=== PATIENT | male | born 1940 | race Caucasian/White ===

== ENCOUNTER 2016-08-04 10:05 | Inpatient (IN) ==
[2016-08-04] MEDS ORDERED: Lidocaine -MPF 2% 2 ML VIAL ONE (10:13)
[2016-08-04] MEDS ORDERED: *HR* FentaNYL (PF) 100 MCG/2 ML VIAL ONE ×4 (10:13→17:50)
[2016-08-04] MEDS ORDERED: *HR* Propofol 200 MG/20 ML VIAL IVP ONE (10:13)
[2016-08-04] MEDS ORDERED: *HR* Rocuronium Bromide 50 MG/5 ML VIAL ONE (10:13)
[2016-08-04] MEDS ORDERED: Lidocaine 1% 20 ML MDV ID ONE (10:30)
[2016-08-04] MEDS ORDERED: CeFAZolin Pre 2,000 MG/100 ML 2,000 MG/100 ML BAG IVPB ONE (10:30)
[2016-08-04] MEDS ORDERED: Albuterol 2.5 MG/3 ML NEBULIZER IH ONE (10:31)
[2016-08-04] MEDS ORDERED: Ringers Solution, Lactated 1,000 ML IVC SCH ×4 (10:45→19:53)
--- NOTE | 2016-08-04 11:11 | Anesthesia Evaluation PreOp ---
Date of Encounter: 08/04/16 Time of Encounter: 11:00 - Past History Planned Operation: Angiogram, Iliac Stent Cardiac History: HTN, Hyperlipidemia, Other (AAA s/p endovascular repair with stent) Pulmonary History: Smoker, COPD SOCIAL GROUP WORKER History: Denies Any Significant HX Other Medical History: Denies Any Significant HX Anesthesia History: No Prior Anesthetic Complications Alcohol Use: none Drug use: none Medications and Allergies Amlodipine [Norvasc] 10 mg PO DAILY 06/26/16 [History] Aspirin [Lo-Dose Aspirin EC] 81 mg PO DAILY 06/26/16 [History] Simvastatin [Zocor] 20 mg PO DAILY 06/26/16 [History] Allergies No Known Allergies Allergy (Verified 06/26/16 06:43) - Meds/Allergy Pre-op Review Medications Reviewed: Yes Allergies Reviewed: Yes Beta Blockers on Current Med List: No Anesthesia Results - Labs Laboratory Tests 07/31/16 07/31/16 07/31/16 11:11 11:11 11:11 Hgb 15.5 Hct 47.4 Plt Count 256 PT 12.0 INR 1.1 APTT 28.3 Sodium 141 Potassium 4.1 BUN 16 Creatinine 0.97 - Imaging EKG: report reviewed (SR Rt BBB) Anesthesia Exam O2 Sat Height 1.73 m Height 1.73 m Height 1.73 m Weight 73.482 kg Weight 73.482 kg Weight 73.482 kg O2 Sat by Pulse Oximetry 95 Vital Signs Temp Pulse Resp BP Pulse Ox 98.2 F 101 18 144/89 95 08/04/16 10:36 08/04/16 10:36 08/04/16 10:36 08/04/16 10:36 08/04/16 10:36 Height: 5'8 Weight: 162 lbs NPO (# of Hours): MN Pain Scale: 0 - HEENT Pupil (Motor): Pupils equal, EOMI Mallampati: III Teeth: Edentulous Oral Opening: Less than or equal to 3 - SOCIAL GROUP WORKER LOC: Oriented SOCIAL GROUP WORKER Motor: Normal RUE, Normal LUE, Normal RLE, Normal LLE, Normal Face SOCIAL GROUP WORKER Sensory: Normal: RUE, LUE, RLE, LLE, Face - Cardiac Rhythm: Regular Murmur: None JVD: No Carotid Bruit: No - Pulmonary Breath Sounds: bilateral Clear Respiratory Effort: Symmetrical Anesthesia Assess/Plan ASA Score: 3 (HTN AAA Tobacco PVD) Modified Anju Scale for Level of Consciousness: Cooperative, oriented, and tranquil Anesthetic Plan: General Monitoring Plan: Standard Monitors Recovery Plan: PACU (Discussed GA, agrees to proceed)
--- NOTE | 2016-08-04 12:59 | History & Physical Report ---
Date of Encounter: 08/04/16 Time of Encounter: 11:30 24 Hour HP Update - Instructions Instructions: If the History and Physical is less than 30 days old and was completed prior to A.M. admission and or procedure and has NOT been updated on calendar day of procedure please complete this update prior to performing procedure. - Update Patient reports changes in Medical Condition: No Changes in assessment/condition: No Changes in Medication: No Preop tests/diagnostics Reviewed: Yes Surgery Remains Indicated: Yes Consent for Planned Operative Procedure(s) Verified: Yes - Pre-Operative Checklist Preoperative Checklist Indicated: Yes Prophylactic Antibiotic Ordered: Yes Home Medications Include Beta Filiberto: No Beta Filiberto Taken Today (Day of Surgery): No Beta Filiberto Taken Yesterday (Day Prior to Surgery): No Is VTE Prophylaxis Indicated?: Yes
[2016-08-04] MEDS ORDERED: Dexamethasone 4 MG/ML VIAL ONE ×2 (14:01→15:34)
[2016-08-04] MEDS ORDERED: *HR* Labetalol 100 MG/20 ML MDV IVP PRN (14:21)
[2016-08-04] MEDS ORDERED: Ondansetron 4 MG/2 ML VIAL IVP ONE (14:21)
[2016-08-04] MEDS ORDERED: *HR* Meperidine 25 MG/ML SYRINGE IVP PRN (14:21)
[2016-08-04] MEDS ORDERED: *HR* HYDROmorphone (PF) 1 MG/ML SYRINGE IVP PRN (14:21)
[2016-08-04] MEDS ORDERED: *HR* Heparin 5,000 UNIT/ML VIAL ONE ×2 (14:44→15:44)
[2016-08-04] MEDS ORDERED: *HR* Phenylephrine 10 MG/ML VIAL ONE (14:48)
[2016-08-04] MEDS ORDERED: Ondansetron 4 MG/2 ML VIAL ONE (15:34)
[2016-08-04] MEDS ORDERED: Heparin 1,000 UNITS/500 mL NS 2,000 ML ONE (17:15)
[2016-08-04] MEDS ORDERED: Heparin 1,000 UNITS/500 mL NS 500 ML ONE (17:25)
--- NOTE | 2016-08-04 19:42 | Operative Note ---
Date of procedure: 08/04/16 Pre-op diagnosis: Expanding residual abdominal aortic aneurysm following EVAR Post-op diagnosis: other (Marked tortuosity of left iliac system) Procedure: Extension of endovascular stent graft repair via open femoral exposure on left. Catheter and sheath placement into aorta -bilateral -nonselective Extension prosthesis initial vessel(left common iliac) Radiologic supervision and interpretation for extension prosthesis Balloon-expandable stent angioplasty of left proximal external iliac artery with 8 x 37 express LD stent Complications: none Anesthesia: GETA Surgeon: Luis Enrique Abrams Estimated blood loss (cc): 750 Specimen: none Condition: stable Disposition: PACU Procedure in Detail: History Richard Barros is a 76-year-old white male who is status post an endovascular repair of an abdominal aortic aneurysm in November 2013. In the postoperative period he has undergone a series of scheduled outpatient follow-up surveillance CT scans. These serial CT scans have shown increasing size of the residual abdominal aortic aneurysm sac up to 6.9 cm. Multiple tests were performed and no defined endovascular leak has been able to be identified. The CT scans grams were submitted for expert review. They also concurred with an finding that no endovascular leak could be identified. Recommendation was then made to place an extension piece on the left side and the patient now comes to the operating room for this procedure. Procedure After informed consent was obtained the patient was taken to the operating room. General endotracheal anesthesia was established. The abdomen and groins and upper thighs were sterilely prepped and draped. A timeout protocol was observed during the left groin was then opened using the previous incision from the original operation in 2013. Dissection was carried down to the region of the inguinal ligament where the common femoral artery was identified. It was then controlled proximally and distally. An 18-gauge needle was then used and a wire was inserted through the needle into the left iliac system. This was followed by a 6 Cymro sheath and dilator. The wire and dilator did not advance smoothly. Therefore the dilator was removed and a iliac Angiogram was obtained via the left groin sheath. This showed a marked tortuosity of the left external iliac artery. An initial bolus of 5000 units of heparin was given at this time and repeat 1000 unit boluses were given on a one hour interval. This then led to a very long and tedious trial of attempting to pass a wire and catheter through this area and into the left limb of the aorto biiliac endovascular stent graft. This was an extremely tedious procedure and despite efforts this could not be performed. Therefore the right groin was punctured with a 18-gauge needle in a retrograde fashion. A guidewire was inserted and this was followed by a 6 Cymro sheath and dilator. Under fluoroscopic control the wire was advanced to the suprarenal aorta area. A Sos Omni catheter was selected and then the wire was passed from the main body which had been placed on the left side down into the left iliac limb. The wire was then advanced through the end of the endovascular stent graft and into the common femoral artery. The sheaths had been placed in the left common femoral artery was removed and the wire was identified. This wire was then pulled through from the right side over the graft into the left thigh region. With this exposed the wire was fed back retrograde over a 6 Cymro sheath. This was then advanced into the left iliac system. Then a 65 cm long angle-tipped glide catheter was advanced over the wire retrograde and the catheter was then placed into the suprarenal aorta. The wire was retracted from the right side and an Amplatz wire was inserted through the left groin glide catheter. With this done in oblique projection was then made of the iliac artery. The iliac bifurcation was identified and there was an area of dissection related to the catheter and wire manipulation. This was in the external iliac artery and the stent graft was secure. Therefore a Medtronic Endurant II stent graft system limb was selected that was a 16 x 20 x 82 mm long. This was a sanderson bottom configuration which was thought to best adapt to the size of the distal common iliac artery. This device was then deployed over the Amplatz wire under fluoroscopic guidance. This was then followed by a Coda balloon which was placed inside the stent graft and carefully inflated so that the stent graft was completely distended and had good wall apposition. No endovascular leaks were identified on a completion angiogram. There was a small area of extravasation at the proximal and lateral aspect of the left external iliac artery and as mentioned before there was an area as well of dissection which was retrograde event. This did not cause a hemodynamically significant flow obstruction but due to the small extravasation it was opted to perform a stent angioplasty of this area to close this area and also to help straighten the vessel. An 8 x 37 mm express LD balloon expandable stent was selected. This was placed in the proximal aspect of the left external iliac artery. This was inflated and held in position for 1 minute. The balloon was then deflated and removed. A final completion Angiogram was performed. This demonstrated a widely patent endovascular stent graft addition. The iliac artery bifurcation was preserved area the extravasation was now resolved. The area of the dissection was well approximated with this new stent. With this accomplished the wire and left femoral sheath were removed. The left femoral artery was then closed using a 6-0 Prolene suture. After appropriate backbleeding and flushing the left limb was opened. The patient demonstrated excellent pulses and Doppler signals through the left femoral system and femoral bifurcation. There was no hemodynamic distress with opening the left limb. As the patient had received repeated doses of heparin and was still therapeutically anticoagulated the right femoral sheath could not be removed at this time. Therefore this sheath was flushed again with heparinized saline and secured in its position. The sheath will be removed according to the standard protocol based on ACT monitoring. The patient was then extubated in the operating room. He was taken to the recovery room in stable condition. The sponge count and needle counts were correct.
--- NOTE | 2016-08-04 19:44 | Anesthesia Evaluation Post Op ---
Date of Encounter: 08/04/16 Time of Encounter: 19:43 - Vital Signs Vital Signs: Vital Signs/O2 Sat/Glucose, Most Current Temp Pulse Resp BP Pulse Ox 08/04/16 19:39 98.3 F 78 16 146/84 95 08/04/16 19:25 80 16 139/85 95 08/04/16 19:15 86 16 137/83 93 L 08/04/16 19:05 98.3 F 97 16 145/84 95 - Lungs Lungs: Clear Ascult./Percussion - Airway Airway: Non-obstructed - Cardiovascular Regular Rate - Mental Status Mental Status: Alert & Oriented, Answers Appropriately - Pain Pain Scale: 0 - Nausea Vomiting Nausea Vomiting: Not Present - Hydration Hydration: Tolerates oral liquids - Discharge PostOp Status: Discharge Patient to home
[2016-08-04] MEDS ORDERED: Naloxone 0.4 MG/ML INJ IVP PRN (19:53)
[2016-08-04] MEDS ORDERED: Ondansetron 4 MG/2 ML VIAL IVP PRN (19:53)
[2016-08-04] MEDS ORDERED: *HR* HYDROcodone/Acet 5/325 mg TABLET PO PRN (19:53)
[2016-08-04] MEDS ORDERED: Acetaminophen 325 MG TABLET PO PRN (19:53)
[2016-08-04] MEDS ORDERED: *HR* Morphine 2 MG/ML SYRINGE IVP PRN ×2 (19:53)
[2016-08-04] MEDS ORDERED: *HR* Atropine Sulfate 1 MG/10 ML SYRINGE ONE (21:23)
[2016-08-04] MEDS: Nicotine 14 MG PATCH.TD24 TD SCH (23:19)
[2016-08-04] MEDS: ceFAZolin 2,000 MG in D5% in Water (Mini-Bag+) 100 ML IVPB SCH (23:19)
[2016-08-05 07:58] LABS: Basophils % 0.1 %; Immature Granulocytes % 0.4 % (0-4); Lymphocytes % 10.6 %; Mean Corpuscular HGB Conc 33.4 g/dL (31.6-35.5); Mean Corpuscular Hemoglobin 32.3 pg (28.0-33.3); Mean Corpuscular Volume 96.7 fL (83.0-100.0); Mean Platelet Volume 10.9 fL (9.4-12.4); Monocytes # 0.7 K/mcL (0.0-1.3); Platelet Count 164 K/mcL (140-400); Red Blood Count 3.62 M/mcL (4.19-5.50); Red Cell Distribution Width 13.6 % (11.5-14.5); Segmented Neutrophils % 81.9 %
[2016-08-05] MEDS: Nicotine 14 MG PATCH.TD24 TD SCH (08:09)
[2016-08-05] MEDS: ceFAZolin 2,000 MG in D5% in Water (Mini-Bag+) 100 ML IVPB SCH ×2 (08:10→16:18)
[2016-08-05 08:11] LABS: BUN/Creatinine Ratio 16 (6-26); Blood Urea Nitrogen 13 mg/dL (8-26); Carbon Dioxide 24 mEq/L (19-29); Chloride 108 mEq/L (98-109); Glucose 154 mg/dL (70-99); Hemoglobin 11.7 g/dL (12.9-16.9); Osmolality,Calculated 293 (280-300); Potassium 4.1 mEq/L (3.5-4.5); Sodium 140 mEq/L (136-145); eGFR For African Americans > 60 (> 60); eGFR For Non-African Americans > 60 (> 60)
[2016-08-05] MEDS ORDERED: Aspirin Enteric Coated 81 MG Tablet PO SCH (09:00)
[2016-08-05] MEDS ORDERED: amLODIPine 5 MG TABLET PO SCH (09:00)
[2016-08-05 15:40] VITALS: BP 131/76
--- NOTE | 2016-08-05 17:29 | Discharge Summary ---
Date of Encounter: 08/05/16 Time of Encounter: 17:27 - Discharge Diagnosis (1) AAA (abdominal aortic aneurysm) without rupture Priority: Primary Status: Chronic Comments: Patient is status post endovascular repair of abdominal aortic aneurysm in November 2013. He has an expansion of his residual aneurysm sac. After elaborate workup no findings of endovascular leak be identified. It was recommended that a extension be placed on the left limb of the graft and the patient was admitted for this procedure at this time to help reduce the likelihood of further residual sac expansion - Discharge Medications Home Medications: Amlodipine [Norvasc] 10 mg PO DAILY 06/26/16 [History] Aspirin [Lo-Dose Aspirin EC] 81 mg PO DAILY 06/26/16 [History] Simvastatin [Zocor] 20 mg PO DAILY 06/26/16 [History] Allergies/Adverse Reactions: Allergies No Known Allergies Allergy (Verified 06/26/16 06:43) Date of admission: 08/04/16 19:49 Primary care physician: Leeanna Yarbrough Consults: None Procedure(s) Performed: Endovascular stent graft of left common iliac artery and balloon expandable stent to proximal left external iliac artery Discharging clinician: Luis Enrique Abrams Anticipated date of discharge: 08/05/16 - Patient Status Disposition: Home, Self-Care Condition: Good Functional capacity at discharge: independent ambulation Overall status at discharge: patient is progressing back to baseline - Discharge Instructions Follow Up With: Omaira Smith CNP [Advanced Practice Nurse] - 08/11/16 2:30 pm Jimmy Jamison MD [Primary Care Provider] - Luis Enrique Abrams MD [Partnered Physician] - 08/26/16 9:45 am Additional Instructions: Follow-up with Dr. Abrams in 2 weeks. Keep left groin incision dry for total of 5 days following surgery. Remove right groin dressing on . Resume usual home medications. Patient may ambulate as tolerated. No lifting greater than 10 pounds or automobile driving for 2 weeks. - Diet and Activity Activity: increase activity as tolerated Diet: low fat, low cholesterol - Hospital Course Hospital course: Mr. Barros is a 76 year old male With continuing expansion of a residual aneurysm sac. The patient was taken to the operating room and under general endotracheal anesthesia of the left femoral exposure was created. A sheath guidewire was placed via the left groin. The patient a very tortuous left iliac artery which proved a very difficult and taunting technical challenge. After multiple manipulations a guidewire was able to be passed into the residual stent graft. An extension component was then placed into the distal aspect of the left common iliac artery. An additional balloon expandable stent was placed on the proximal aspect of the left external iliac artery. The patient had an uneventful postoperative course. He was hemodynamically stable. Patient was felt able to be up and walking in the hallways on postoperative day #1. The patient was felt fit for discharge on the afternoon of postoperative day #1. - Time Spent with Patient Total time spent providing and/or coordinating discharge services: Exam Vital Signs, Last 4 Hours Temp Pulse BP Pulse Ox 08/05/16 15:32 98.2 F 103 131/76 94 L General: Present: Conversant, No Apparent Distress HEENT: Present: Atraumatic Lungs: Present: Decreased breath sounds Neuro: Present: Alert and responsive, No focal deficits noted Abdomen: Present: Soft, Non-tender. Absent: Hepatosplenomegaly, Masses Vascular: Present: Pulse, normal (2+ palpable femoral and popliteal pulses. Doppler signals at the ankle.), Color/Temperature, Surgical incisions (Left groin incision is clean and dry. Right groin puncture site is clean and dry.). Absent: Cyanosis, Edema Skin: Present: No rashes noted on visualized skin - VTE Documentation of Mechanical Device: Intermittent pneumatic compression device
== END 2016-08-05 17:50 | disposition home or self-care (01) | DRG 269 ==
LOC: SAMDAY 10:05 → 2NNU 19:49
PROVIDERS: ADMIT Surgery Vascular Surgery; ATTEND Surgery Vascular Surgery

== ENCOUNTER 2016-08-23 14:47 | Observation (INO) ==
[2016-08-23] MEDS ORDERED: Naloxone 0.4 MG/ML INJ IVP PRN (16:36)
[2016-08-23] MEDS ORDERED: MOM Conc 10 ML UD.LIQ PO PRN (16:36)
[2016-08-23] MEDS ORDERED: Ondansetron 4 MG/2 ML VIAL IVP PRN (16:36)
[2016-08-23] MEDS ORDERED: Mag Hydrox/Al Hydrox/Simeth 30 ML UDC PO PRN (16:36)
[2016-08-23] MEDS ORDERED: Acetaminophen 325 MG TABLET PO PRN (16:36)
[2016-08-23] MEDS ORDERED: Heparin 25,000 UNIT/500 ML D5W 25,000 UNIT/500 ML MLS IVC SCH ×2 (16:45→18:00)
[2016-08-23] MEDS: Nicotine 21 MG PATCH.TD24 TD SCH (17:49)
[2016-08-23] MEDS ORDERED: *HR* Heparin 5,000 UNIT/ML VIAL IVP PRN ×2 (17:49)
[2016-08-23] MEDS ORDERED: *HR* Heparin 5,000 UNIT/ML VIAL IVP ONE (17:49)
[2016-08-23 18:11] LABS: Hematocrit 36.4 % (37.5-50.1); Hemoglobin 11.9 g/dL (12.9-16.9); Immature Platelets 4.6 % (1.1-6.1); Mean Corpuscular HGB Conc 32.7 g/dL (31.6-35.5); Mean Corpuscular Hemoglobin 31.6 pg (28.0-33.3); Mean Corpuscular Volume 96.8 fL (83.0-100.0); Mean Platelet Volume 10.2 fL (9.4-12.4); Red Blood Count 3.76 M/mcL (4.19-5.50); Red Cell Distribution Width 13.5 % (11.5-14.5)
[2016-08-23 18:12] LABS: INR 1.2; Prothrombin Time 12.5 Seconds (9.4-12.1)
[2016-08-23 18:15] LABS: Activated Partial Thrombo Time 37.2 Seconds (26.0-36.0)
--- NOTE | 2016-08-23 18:19 | Internal Med History&Physical ---
Date of Encounter: 08/23/16 Time of Encounter: 17:00 Assessment and Plan (1) Dvt femoral (deep venous thrombosis) Current visit: Yes Status: Acute Currently on heparin drip. Vascular surgery consult. Start PO med tomorrow - family prefers NOAC. Bedrest for now. Qualifiers: Laterality: left Chronicity: acute Qualified Code(s): I82.412 - Acute embolism and thrombosis of left femoral vein (2) DVT of popliteal vein Current visit: Yes Status: Acute heparin drip started Qualifiers: Laterality: left Chronicity: acute Qualified Code(s): I82.432 - Acute embolism and thrombosis of left popliteal vein (3) HTN (hypertension) Current visit: Yes Status: Chronic Continue home medications and monitor for now. Qualifiers: Hypertension type: essential hypertension Qualified Code(s): I10 - Essential (primary) hypertension (4) HLD (hyperlipidemia) Current visit: Yes Status: Chronic Continue home medications. Qualifiers: Hyperlipidemia type: mixed hyperlipidemia Qualified Code(s): E78.2 - Mixed hyperlipidemia (5) Transitional cell bladder cancer Current visit: Yes Status: Chronic (6) Tobacco abuse Current visit: Yes Status: Acute Patch. Cessation counselling. (7) AAA (abdominal aortic aneurysm) without rupture Current visit: No Status: Chronic Internal Medicine - H&P: HPI Chief complaint: Swollen L leg Admitted From: Direct Admit Plans for Post Hospital Care: Home History of present illness: Mr. Barros is a 76 year old male with hx of PVD transferred from ED at [facility] due to acute DVT L leg. He was just recently discharged after vascular procedure to his L leg. He said he was at home and started having some pain in his L groin area a few days ago. He said he didn't move around as much after that and he noticed his leg was getting progressively more swollen. He denied fever or chills. No chest pain or dyspnea. He continues to smoke. Family is at bedside and was updated on current condition. He denies abd pain or GI symptoms. OTC meds did not help. Past Med Surg Social Fam HX - Past Medical History Attestation: Yes The following information was validated with the patient. Source: patient Medical history: cancer (transitional cell of bladder), hyperlipidemia, hypertension Psychiatric history: no psych history - Past Surgical History Surgical History: orthopedic, other (R knee), vascular surgery (AAA repair), other (bladder scope; ear surgery) - Social History Smoking Status: Current every day smoker Packs per day: 1 Smokeless Tobacco Status: No Alcohol use: none Drug use: none - Family History Father Living Status: Hx Family Cancer: Yes Mother Living Status: Hx Family Cardiac Disorders: Yes Internal Medicine - H&P: Meds Amlodipine [Norvasc] 10 mg PO DAILY 06/26/16 [History] Aspirin [Lo-Dose Aspirin EC] 81 mg PO DAILY 06/26/16 [History] Simvastatin [Zocor] 20 mg PO DAILY 06/26/16 [History] Allergies No Known Allergies Allergy (Verified 06/26/16 06:43) All Systems PM: A 10-system review of systems was performed and is negative for pertinent findings except as documented above in the HPI. - Constitutional Constitutional: fatigue, no falls, no weakness - EENT Eyes: no blurry vision, no loss of vision Ears: no decreased hearing Nose, mouth and throat: no dry mouth, no dysphagia, no mouth pain - Cardiovascular Cardiovascular ROS IM: edema, no chest pain, no dyspnea, no dyspnea on exertion , no palpitations - Respiratory Respiratory: cough, wheezing, no chest congestion - Gastrointestinal Gastrointestinal: no constipation, no cramping, no diarrhea, no hematemesis, no hematochezia, no melena - Genitourinary Genitourinary ROS male: no dysuria, no nocturia - Musculoskeletal Musculoskeletal ROS IM: no numbness, no stiffness - Integumentary Integumentary IM: no erythema, no rash - Neurological Neurological ROS: no confusion, no disequilibrium, no dizziness, no numbness - Psychiatric Psychiatric: irritability, no confusion - Endocrine Endocrine IM: no flushing, no heat intolerance - Hematologic/Lymphatic Hematologic/Lymphatic: no easy bleeding - Allergic/Immunologic Allergic/Immunologic: no itchy eyes - Constitutional Vitals: Temp Pulse Resp BP Pulse Ox 97.7 F 105 17 148/91 95 08/23/16 16:44 08/23/16 16:44 08/23/16 16:44 08/23/16 16:44 08/23/16 16:44 General appearance: Present: A&O X 3, answers questions appropriately - Head Head exam: Present: atraumatic, normocephalic - Eye Eye exam: Present: EOMI, conjuntiva pink - ENT ENT exam: Present: mucous membranes moist - Neck Neck exam general surgery: Present: supple. Absent: lymphadenopathy - Respiratory Respiratory exam: Present: decreased breath sounds, prolonged expiratory phase, wheezes - Cardiovascular Cardiovascular exam: Present: RRR. Absent: systolic murmur, tachycardia - GI/Abdominal GI/Abdominal exam: Present: soft. Absent: mass, tenderness - Extremities Exam Extremities exam: Present: tenderness, warm Additional comments: L LE with significant edema. Warm to touch with intact sensation. Faint DP pulse. RLE with no edema. - Incison Incision: Present: clean and dry Comments: L groin - Neurological Exam Neurological exam: Present: alert, oriented X3, no focal deficits - Skin Skin exam: Present: dry, warm. Absent: rash - VTE Reasons for not Prescribing Prophylaxis: Not indicated-Anticoagulated or INR therapeutic
[2016-08-24 03:41] LABS: Hematocrit 32.8 % (37.5-50.1); Hemoglobin 10.8 g/dL (12.9-16.9); Immature Platelets 5.8 % (1.1-6.1); Mean Corpuscular HGB Conc 32.9 g/dL (31.6-35.5); Mean Corpuscular Hemoglobin 32.1 pg (28.0-33.3); Mean Corpuscular Volume 97.6 fL (83.0-100.0); Mean Platelet Volume 10.8 fL (9.4-12.4); Red Blood Count 3.36 M/mcL (4.19-5.50); Red Cell Distribution Width 13.5 % (11.5-14.5)
[2016-08-24 03:57] LABS: BUN/Creatinine Ratio 18 (6-26); Blood Urea Nitrogen 20 mg/dL (8-26); Calcium 9.8 mg/dL (8.6-10.8); Carbon Dioxide 21 mEq/L (19-29); Chloride 107 mEq/L (98-109); Glucose 102 mg/dL (70-99); Osmolality,Calculated 289 (280-300); Potassium 4.3 mEq/L (3.5-4.5); Sodium 138 mEq/L (136-145); eGFR For African Americans > 60 (> 60); eGFR For Non-African Americans > 60 (> 60)
[2016-08-24] MEDS: Nicotine 21 MG PATCH.TD24 TD SCH (08:41)
[2016-08-24] MEDS ORDERED: Aspirin Enteric Coated 81 MG Tablet PO SCH (09:00)
[2016-08-24] MEDS ORDERED: amLODIPine 5 MG TABLET PO SCH (09:00)
[2016-08-24] MEDS ORDERED: *HR* Rivaroxaban 15 MG TABLET PO SCH (13:15)
--- NOTE | 2016-08-24 15:17 | Internal Med Progress Note ---
Date of Encounter: 08/24/16 Time of Encounter: 15:11 - Assessment and plan (1) Dvt femoral (deep venous thrombosis) Current Visit: Yes Status: Acute Assessment and plan: possible provoked,He was just recently discharged after vascular procedure to his L leg. He said he was at home and started having some pain in his L groin area a few days ago. He said he didn't move around as much after that and he noticed his leg was getting progressively more swollen. will start on xarelto. await vascular for evlauation prior to dc Qualifiers: Laterality: left Chronicity: acute Qualified Code(s): I82.412 - Acute embolism and thrombosis of left femoral vein (2) HTN (hypertension) Current Visit: Yes Status: Chronic Qualifiers: Hypertension type: essential hypertension Qualified Code(s): I10 - Essential (primary) hypertension (3) HLD (hyperlipidemia) Current Visit: Yes Status: Chronic Qualifiers: Hyperlipidemia type: mixed hyperlipidemia Qualified Code(s): E78.2 - Mixed hyperlipidemia (4) Transitional cell bladder cancer Current Visit: Yes Status: Chronic (5) Tobacco abuse Current Visit: Yes Status: Acute - Time Spent With Patient 25 - 35 minutes - Subjective Interval history: seen at the bedside, reports swelling adn pain of the left leg. admitted for new onset DVT. denies chest pain or sob - Constitutional Vitals: Temp Pulse Resp BP Pulse Ox 97.9 F 97 16 124/79 95 08/24/16 11:38 08/24/16 11:38 08/24/16 11:38 08/24/16 11:38 08/24/16 11:38 General appearance: Present: A&O X 3, answers questions appropriately Exam: - Head Head exam: Present: atraumatic, normocephalic - Eye Eye exam: Present: EOMI, conjuntiva pink - ENT ENT exam: Present: mucous membranes moist - Neck Neck exam general surgery: Present: supple. Absent: lymphadenopathy - Respiratory Respiratory exam: Present: decreased breath sounds, prolonged expiratory phase, wheezes - Cardiovascular Cardiovascular exam: Present: RRR. Absent: systolic murmur, tachycardia - GI/Abdominal GI/Abdominal exam: Present: soft. Absent: mass, tenderness - Extremities Exam Extremities exam: Present: tenderness, warm Additional comments: L LE with significant edema. Warm to touch with intact sensation. Faint DP pulse. RLE with no edema. - Incison Incision: Present: clean and dry - Neurological Exam Neurological exam: Present: alert, oriented X3, no focal deficits - Skin Skin exam: Present: dry, warm. Absent: rash Internal Medicine: Result - Labs CBC & Chem 7: 08/24/16 02:39 08/24/16 02:39 Labs: Short CBC 08/23/16 08/24/16 Range/Units 17:57 02:39 WBC 10.4 7.4 (4.3-11.1) K/mcL Hgb 11.9 L 10.8 L (12.9-16.9) g/dL Hct 36.4 L 32.8 L (37.5-50.1) % Plt Count 85 L 72 L (140-400) K/mcL BMP 08/24/16 02:39 Sodium 138 Potassium 4.3 Chloride 107 Carbon Dioxide 21 BUN 20 Creatinine 1.10 Glucose 102 H Calcium 9.8 - ABG Interpretation ABG results: PT/INR, D-dimer PT 12.5 Seconds (9.4-12.1) H 08/23/16 17:57 - VTE Reasons for not Prescribing Prophylaxis: Not indicated-Anticoagulated or INR therapeutic Consult Discharge Plan - Plan Referrals: Ruby Lind MD [Non-Partnered Physician] - 09/01/16 2:30 pm (Please follow up as schedule..with the nurse practitioner Omaira)
[2016-08-24 16:24] VITALS: BP 90/65
--- NOTE | 2016-08-24 16:30 | Vascular/Endovasc Consult Note ---
Date of Encounter: 08/24/16 Time of Encounter: 16:00 Assessment and Plan (1) AAA (abdominal aortic aneurysm) without rupture Current Visit: No Status: Chronic The patient is stable following his recent extension prosthesis for the left limb of his endovascular aortic stent graft. His abdomen is soft and there are no pulsatile masses palpated. (2) Dvt femoral (deep venous thrombosis) Current Visit: Yes Status: Acute Left lower extremity DVT. I agree with use of intravenous heparin with conversion to Xarleto. The patient was instructed to keep the left lower extremity elevated with the knee and ankle higher than the level of the heart when he is resting and when he is sleeping. It is permissible for the patient to ambulate. The patient may be discharged at the discretion of the admitting service. Qualifiers: Laterality: left Chronicity: acute Qualified Code(s): I82.412 - Acute embolism and thrombosis of left femoral vein - History of Present Illness Consult date: 08/24/16 Requesting physician: Ankush Petit Consult reason: Acute left lower extremity DVT Chief complaint: Left leg swelling History of present illness: Mr. Barros is a 76 year old male Who has a 3 to four-day complaint of swelling and discomfort of the left lower extremity. He had called me via the answering service yesterday afternoon and I spoke with his . I recommended a venous duplex scan. As they live in [place] went to [facility]. The duplex scan was positive for a left lower extremity DVT. He was then referred to [facility] for admission and treatment. He was placed on intravenous heparin. He had undergone an endovascular repair of an abdominal aortic aneurysm approximately 2-1/2 years ago. We had noted on surveillance scans that he had increasing size of the residual aneurysm sac even though there is no obvious endoleak identified. Therefore on August 04 he went back to the operating room and had an extension prosthesis placed on the left limb of his graft down to the left iliac bifurcation. He also had a left external iliac artery stent placed. This procedure was all prepped performed via an open femoral exposure. There was no venous puncture at the time of this procedure. The patient notes that he has had some discomfort and pain in the groin and so he had stopped walking and I suspect that this acute DVT is more due to perioperative sedentary behavior rather than any iliac or common femoral vein. On evaluation this afternoon the patient has no complaints. He states the leg is feeling better though it remains swollen. He has not had any previous history of deep venous thrombosis. Past Med Surg Social Fam HX - Past Medical History Medical history: cancer (transitional cell of bladder), hyperlipidemia, hypertension Psychiatric history: no psych history - Past Surgical History Surgical History: orthopedic, other (R knee), vascular surgery (AAA repair), other (bladder scope; ear surgery) - Social History Smoking Status: Current every day smoker Packs per day: 1 Smokeless Tobacco Status: No Alcohol use: none Drug use: none - Family History Father Living Status: Hx Family Cancer: Yes Mother Living Status: Hx Family Cardiac Disorders: Yes Medications and Allergies Amlodipine [Norvasc] 10 mg PO DAILY 06/26/16 [History] Aspirin [Lo-Dose Aspirin EC] 81 mg PO DAILY 06/26/16 [History] Simvastatin [Zocor] 20 mg PO DAILY 06/26/16 [History] Allergies No Known Allergies Allergy (Verified 06/26/16 06:43) All Systems Review: A 10-system review of systems was performed and is negative for pertinent findings except as documented above in the HPI. Exam Vital Signs, Last 4 Hours Temp Pulse Resp BP Pulse Ox 08/24/16 16:20 97.6 F 98 16 90/65 96 General: Present: Conversant, No Apparent Distress HEENT: Present: Atraumatic Neck: Absent: JVD Neuro: Present: Alert and responsive, No focal deficits noted, Cranial nerves grossly intact Abdomen: Present: Soft, Non-tender. Absent: Masses Vascular: Present: Normal capillary refill, Pulse, normal, Edema (The patient has significant edema of the left lower extremity beginning from the thigh and extending to the foot and toes. There is no streaking or cellulitis. There are no open wounds.), Surgical incisions (The left groin incision is clean and dry and healing well. There are no signs of ecchymoses or hematoma.) Consult Discharge Plan - Plan Referrals: Ruby Lind MD [Non-Partnered Physician] - 09/01/16 2:30 pm (Please follow up as schedule..with the nurse practitioner Omaira) Luis Enrique Abrams MD [Partnered Physician] - (Patient to follow up with Dr. Abrams in 2 weeks.)
--- NOTE | 2016-08-24 18:04 | Discharge Summary ---
Date of Encounter: 08/24/16 Time of Encounter: 18:03 - Discharge Diagnosis (1) Dvt femoral (deep venous thrombosis) Priority: Primary Status: Acute Qualifiers: Laterality: left Chronicity: acute Qualified Code(s): I82.412 - Acute embolism and thrombosis of left femoral vein (2) HTN (hypertension) Priority: Secondary Status: Chronic Qualifiers: Hypertension type: essential hypertension Qualified Code(s): I10 - Essential (primary) hypertension (3) HLD (hyperlipidemia) Priority: Secondary Status: Chronic Qualifiers: Hyperlipidemia type: mixed hyperlipidemia Qualified Code(s): E78.2 - Mixed hyperlipidemia (4) 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 (5) Tobacco abuse Priority: Secondary Status: Acute - Discharge Medications Home Medications: Amlodipine [Norvasc] 10 mg PO DAILY 06/26/16 [History] Aspirin [Lo-Dose Aspirin EC] 81 mg PO DAILY 06/26/16 [History] Simvastatin [Zocor] 20 mg PO DAILY 06/26/16 [History] Rivaroxaban [Xarelto] 1 tab PO PER PKG DI 08/24/16 [History] Allergies/Adverse Reactions: Allergies No Known Allergies Allergy (Verified 06/26/16 06:43) Date of admission: 08/23/16 16:24 Primary care physician: PCP NO Consults: 08/23/16 17:53 Consult to Vascular Surgery [CONS] Routine Consulting Provider: Vascular Surgery [place] Reason for Consult: DVT L leg s/p surgery Time Notified: 17:50 Call Completed: Yes Discharging clinician: Valeria Solitario Anticipated date of discharge: 08/24/16 - Patient Status Disposition: Home, Self-Care Condition: Fair Functional capacity at discharge: independent ambulation Overall status at discharge: patient is back to baseline - Discharge Instructions Follow Up With: Luis Enrique Abrams MD [Partnered Physician] - (Patient to follow up with Dr. Abrams in 2 weeks.) Ruby Lind MD [Non-Partnered Physician] - 09/01/16 2:30 pm (Please follow up as schedule..with the nurse practitioner Omaira) - Diet and Activity Activity: resume usual activities as tolerated Diet: advance to your usual diet Interval History: Mr. Barros is a 76 year old male who presented with c/o swelling and discomfort of the left lower extremity. The duplex scan was positive for a left lower extremity DVT at [facility]. He was then referred to [facility] for admission and treatment. He was placed on intravenous heparin. He had undergone an endovascular repair of an abdominal aortic aneurysm approximately 2-1/2 years ago. We had noted on surveillance scans that he had increasing size of the residual aneurysm sac even though there is no obvious endoleak identified. Therefore on August 04 he went back to the operating room and had an extension prosthesis placed on the left limb of his graft down to the left iliac bifurcation. He also had a left external iliac artery stent placed. This procedure was all prepped performed via an open femoral exposure. There was no venous puncture at the time of this procedure. The patient notes that he has had some discomfort and pain in the groin and so he had stopped walking and I suspect that this acute DVT is more due to perioperative sedentary behavior rather than any iliac or common femoral vein. On evaluation this afternoon the patient has no complaints. He states the leg is feeling better though it remains swollen. He has not had any previous history of deep venous thrombosis. HE has been transitioned to oral xarelto and is being discharged in stable condition. Hospital course: Mr. Barros is a 76 year old male Time spent discussing smoking cessation with patient: more than 10 minutes - Time Spent with Patient Total time spent providing and/or coordinating discharge services: Greater than 30 minutes - Constitutional Vitals: Temp Pulse Resp BP Pulse Ox 97.6 F 98 16 90/65 96 08/24/16 16:20 08/24/16 16:20 08/24/16 16:20 08/24/16 16:20 08/24/16 16:20 General appearance: Present: A&O X 3, answers questions appropriately Exam: - Head Head exam: Present: atraumatic, normocephalic - Eye Eye exam: Present: EOMI, conjuntiva pink - ENT ENT exam: Present: mucous membranes moist - Neck Neck exam general surgery: Present: supple. Absent: lymphadenopathy - Respiratory Respiratory exam: Present: decreased breath sounds, prolonged expiratory phase, wheezes - Cardiovascular Cardiovascular exam: Present: RRR. Absent: systolic murmur, tachycardia - GI/Abdominal GI/Abdominal exam: Present: soft. Absent: mass, tenderness - Extremities Exam Extremities exam: Present: tenderness, warm - Incison Incision: Present: clean and dry - Neurological Exam Neurological exam: Present: alert, oriented X3, no focal deficits - Skin Skin exam: Present: dry, warm. Absent: rash - VTE Reasons for not Prescribing Prophylaxis: Not indicated-Anticoagulated or INR therapeutic
== END 2016-08-24 18:44 | disposition home or self-care (01) ==
LOC: 2ANU 16:24 → INTOOBSV 16:24
PROVIDERS: ADMIT Internal Medicine; ATTEND Internal Medicine Endocrinology, Diabetes & Metabolism

== ENCOUNTER 2019-05-09 06:28 | Inpatient (IN) ==
[~2019-05-09 06:28] MED LIST: ceFAZolin 1,000 MG, Sodium Chloride IRRigation 1,000 ML IR ONE
[2019-05-09] MEDS ORDERED: Lidocaine -MPF 2% 2 ML VIAL ONE (06:36)
[2019-05-09] MEDS ORDERED: Dexamethasone 4 MG/ML VIAL ONE (06:36)
[2019-05-09] MEDS ORDERED: *HR* Rocuronium Bromide 50 MG/5 ML VIAL ONE ×2 (06:36→09:23)
[2019-05-09] MEDS ORDERED: EPINEPHrine 1 MG/ML VIAL ONE (06:36)
[2019-05-09] MEDS ORDERED: *HR* Phenylephrine 10 MG/ML VIAL ONE (06:36)
[2019-05-09] MEDS ORDERED: Ondansetron 4 MG/2 ML VIAL ONE (06:37)
[2019-05-09] MEDS ORDERED: Lidocaine HCL 4 ML Topical Solution (Laryng-O-Jet Kit Sterile Pak) TP ONE (06:44)
[2019-05-09] MEDS ORDERED: *HR* Propofol 200 MG/20 ML VIAL IVP ONE ×2 (06:48→13:49)
[2019-05-09] MEDS ORDERED: Heparin 1,000 UNITS/500 mL 500 ML ONE ×2 (06:52→07:15)
[2019-05-09] MEDS ORDERED: *HR* Heparin 5,000 UNIT/ML VIAL ONE (06:53)
[2019-05-09] MEDS ORDERED: *HR* Remifentanil 2 MG VIAL IVP ONE (06:55)
[2019-05-09] MEDS ORDERED: *HR* FentaNYL (PF) 100 MCG/2 ML VIAL ONE (06:55)
[2019-05-09] MEDS ORDERED: NiCARdipine 2.5 MG/10 ML Syringe IVPB ONE (06:57)
[2019-05-09] MEDS ORDERED: *HR* Vasopressin 20 UNIT/ML VIAL ONE (06:57)
[2019-05-09] MEDS ORDERED: Ringers Solution, Lactated 1,000 ML IVC SCH ×3 (07:15→22:40)
[2019-05-09] MEDS ORDERED: CeFAZolin Syr 2,000MG/20 ML 2,000 MG/20 ML SYRINGE IVPB ONE (07:21)
[2019-05-09] MEDS ORDERED: niCARdipine 20 MG/200 ML MLS IVC ONE (07:28)
[2019-05-09] MEDS ORDERED: Albuterol 2.5 MG/3 ML NEBULIZER IH PRN ×2 (07:36→14:58)
[2019-05-09] MEDS ORDERED: Lidocaine Jelly 6ml 1 APPL/6 ML JEL.PF.APP ONE ×2 (08:33→08:44)
[2019-05-09 08:53] LABS: ABG Base Excess -2 mEq/L (-2 to 3); ABG Chloride 110 mEq/L (98-107); ABG Glucose 104 mg/dL (60-95); ABG HCO3 24 mEq/L (21-27); ABG Oxygen Saturation 100 % (95-98); ABG PCO2 46 mmHg (35-45); ABG PH 7.33 pH Units (7.32-7.45); ABG PO2 183 mmHg (85-104); ABG TCO2 25 mEq/L (20-26)
[2019-05-09] MEDS ORDERED: EPHEDrine 50 MG/ML VIAL ONE (09:05)
[2019-05-09] MEDS ORDERED: *HR* PHENYLEPHRINE 1,000 MCG/10 ML SYRINGE IVP ONE (09:37)
[2019-05-09] MEDS ORDERED: Albumin Human 5% 25.0 GM/500 ML VIAL ONE (09:38)
[2019-05-09] MEDS ORDERED: Norepinephrine 4 MG in 0.9 % Sodium Chloride 250 ML IVC SCH (09:45)
[2019-05-09 10:54] LABS: ABG Base Excess -4 mEq/L (-2 to 3); ABG Chloride 108 mEq/L (98-107); ABG Glucose 153 mg/dL (60-95); ABG HCO3 24 mEq/L (21-27); ABG Ionized Calcium 1.31 mmol/L (1.15-1.35); ABG Oxygen Saturation 99 % (95-98); ABG PCO2 54 mmHg (35-45); ABG PH 7.25 pH Units (7.32-7.45); ABG PO2 166 mmHg (85-104); ABG TCO2 26 mEq/L (20-26)
[2019-05-09 12:59] LABS: ABG Base Excess -6 mEq/L (-2 to 3); ABG Chloride 110 mEq/L (98-107); ABG Glucose 158 mg/dL (60-95); ABG HCO3 21 mEq/L (21-27); ABG Ionized Calcium 1.24 mmol/L (1.15-1.35); ABG Oxygen Saturation 99 % (95-98); ABG PCO2 47 mmHg (35-45); ABG PH 7.26 pH Units (7.32-7.45); ABG PO2 177 mmHg (85-104); ABG TCO2 23 mEq/L (20-26)
[2019-05-09] MEDS ORDERED: *HR* HYDROMORPHONE 2 MG/ML VIAL ONE (13:11)
[2019-05-09 13:42] LABS: ABG Base Excess -5 mEq/L (-2 to 3); ABG Chloride 112 mEq/L (98-107); ABG Glucose 165 mg/dL (60-95); ABG HCO3 22 mEq/L (21-27); ABG Ionized Calcium 1.25 mmol/L (1.15-1.35); ABG Oxygen Saturation 100 % (95-98); ABG PCO2 45 mmHg (35-45); ABG PH 7.29 pH Units (7.32-7.45); ABG PO2 428 mmHg (85-104); ABG TCO2 23 mEq/L (20-26)
[2019-05-09] MEDS ORDERED: *HR* Labetalol 20 MG/4 ML SYRINGE IVP PRN ×2 (13:56→14:58)
[2019-05-09] MEDS ORDERED: Naloxone 0.4 MG/ML INJ IVP PRN ×2 (13:56→14:58)
[2019-05-09] MEDS ORDERED: Artificial Tears SOLN 15 ML BOTTLE BOTH EYES PRN ×2 (14:49→14:58)
[2019-05-09] MEDS ORDERED: Furosemide 40 MG/4 ML VIAL IVP ONE ×2 (14:57→14:58)
[2019-05-09] MEDS ORDERED: ceFAZolin 1,000 MG, Sodium Chloride IRRigation 1,000 ML IR ONE (14:58)
[2019-05-09] MEDS ORDERED: FentaNYL (PF) 1,000 MCG in 0.9 % Sodium Chloride 80 ML IVC SCH (15:00)
[2019-05-09] MEDS: Ipratropium/Albuterol Neb 3 ML IH SCH ×2 (15:28→20:00)
[2019-05-09] MEDS ORDERED: Artificial Tears SOLN 15 ML BOTTLE BOTH EYES SCH (16:00)
[2019-05-09 16:33] LABS: ABG Base Excess -9 mEq/L (-2 to 3); ABG HCO3 23 mEq/L (21-27); ABG Oxygen Saturation 98 % (95-98); ABG PCO2 79 mmHg (35-45); ABG PH 7.08 pH Units (7.32-7.45); ABG PO2 153 mmHg (85-104); ABG TCO2 26 mEq/L (20-26); Blood Gas VT 500 cc
[2019-05-09] MEDS: FentaNYL (PF) 1,000 MCG in 0.9 % Sodium Chloride 80 ML IVC SCH (16:51)
[2019-05-09] MEDS: Artificial Tears SOLN 15 ML BOTTLE BOTH EYES SCH ×2 (16:51→21:00)
[2019-05-09] MEDS: Famotidine 20 MG/2 ML VIAL IVP SCH (16:51)
[2019-05-09] MEDS: Norepinephrine 4 MG in 0.9 % Sodium Chloride 250 ML IVC SCH (16:52)
[2019-05-09 17:22] LABS: ABG Base Excess -8 mEq/L (-2 to 3); ABG HCO3 22 mEq/L (21-27); ABG Oxygen Saturation 97 % (95-98); ABG PCO2 58 mmHg (35-45); ABG PH 7.18 pH Units (7.32-7.45); ABG PO2 111 mmHg (85-104); ABG TCO2 23 mEq/L (20-26); Blood Gas VT 500 cc
[2019-05-09 17:25] LABS: Basophils % 0.2 %; Hematocrit 44.8 % (37.5-50.1); Hemoglobin 14.8 g/dL (12.9-16.9); Immature Granulocytes % 0.4 % (0-4); Lymphocytes # 0.6 K/mcL (0.6-4.6); Lymphocytes % 3.7 %; Mean Corpuscular Hemoglobin 32.5 pg (28.0-33.3); Mean Corpuscular Volume 98.5 fL (83.0-100.0); Mean Platelet Volume 10.1 fL (9.4-12.4); Monocytes # 1.4 K/mcL (0.0-1.3); Monocytes % 8.3 %; Neutrophils # 14.3 K/mcL (1.6-8.9); Platelet Count 136 K/mcL (140-400); Red Blood Count 4.55 M/mcL (4.19-5.50); Red Cell Distribution Width 13.9 % (11.5-14.5); Segmented Neutrophils % 87.4 %
[2019-05-09 17:26] LABS: White Blood Count 16.4 K/mcL (4.3-11.1)
[2019-05-09 17:44] LABS: BUN/Creatinine Ratio 16 (6-26); Blood Urea Nitrogen 21 mg/dL (8-23); Calcium 8.3 mg/dL (8.6-10.3); Carbon Dioxide 22 mEq/L (23-29); Chloride 108 mEq/L (98-107); Glucose 254 mg/dL (70-105); Osmolality,Calculated 312 (280-300); Potassium 4.3 mEq/L (3.5-5.1); Sodium 145 mEq/L (136-145); eGFR For African Americans > 60 (> 60); eGFR For Non-African Americans 51 (> 60)
[2019-05-09] MEDS ORDERED: Famotidine 20 MG/2 ML VIAL IVP SCH (18:00)
[2019-05-09] MEDS: Budesonide/Formoterol 160/4.5 1 PUFF INH IH SCH (19:59)
[2019-05-09] MEDS ORDERED: Chlorhexidine Rinse 15 ML MOUTHWASH MM SCH (21:00)
[2019-05-09] MEDS: Chlorhexidine Rinse 15 ML MOUTHWASH MM SCH (21:00)
[2019-05-09] MEDS ORDERED: Perflutren Lipid Microsphere 1.3 ML in 0.9 % Sodium Chloride 8.7 ML IVP ONE (21:26)
[2019-05-09] MEDS: Ringers Solution, Lactated 1,000 ML IVC SCH (22:40)
[2019-05-10] MEDS: Artificial Tears SOLN 15 ML BOTTLE BOTH EYES SCH ×6 (00:32→19:56)
[2019-05-10] MEDS: Ipratropium/Albuterol Neb 3 ML IH SCH ×6 (00:45→20:14)
[2019-05-10] MEDS ORDERED: Dextrose Gel 15 GM/37.5 ML TUBE PO PRN ×2 (01:07)
[2019-05-10] MEDS ORDERED: *HR* Dextrose 50 % in Water (Syg) 50 ML SYRINGE IVP PRN (01:07)
[2019-05-10] MEDS: FentaNYL (PF) 1,000 MCG in 0.9 % Sodium Chloride 80 ML IVC SCH (02:10)
[2019-05-10 05:02] LABS: Basophils % 0.1 %; Hematocrit 42.3 % (37.5-50.1); Hemoglobin 13.7 g/dL (12.9-16.9); Immature Granulocytes % 0.4 % (0-4); Lymphocytes # 0.8 K/mcL (0.6-4.6); Lymphocytes % 5.6 %; Mean Corpuscular HGB Conc 32.4 g/dL (31.6-35.5); Mean Corpuscular Hemoglobin 32.2 pg (28.0-33.3); Mean Corpuscular Volume 99.3 fL (83.0-100.0); Monocytes # 1.1 K/mcL (0.0-1.3); Monocytes % 8.2 %; Neutrophils # 11.7 K/mcL (1.6-8.9); Platelet Count 108 K/mcL (140-400); Red Blood Count 4.26 M/mcL (4.19-5.50); Red Cell Distribution Width 14.1 % (11.5-14.5); Segmented Neutrophils % 85.7 %; White Blood Count 13.7 K/mcL (4.3-11.1)
[2019-05-10 05:24] LABS: Calcium 8.7 mg/dL (8.6-10.3); Potassium 4.2 mEq/L (3.5-5.1)
[2019-05-10 05:33] LABS: ABG Base Excess -10 mEq/L (-2 to 3); ABG HCO3 17 mEq/L (21-27); ABG Oxygen Saturation 98 % (95-98); ABG PCO2 43 mmHg (35-45); ABG PH 7.22 pH Units (7.32-7.45); ABG PO2 124 mmHg (85-104); ABG TCO2 19 mEq/L (20-26); Blood Gas VT 500 cc
[2019-05-10] MEDS ORDERED: 0.9 % Sodium Chloride 500 ML IVC ONE ×2 (05:40→07:47)
[2019-05-10] MEDS: Famotidine 20 MG/2 ML VIAL IVP SCH (05:51)
[2019-05-10] MEDS ORDERED: Sodium Bicarbonate 50 MEQ/50 ML VIAL IVP ONE (05:54)
[2019-05-10] MEDS ORDERED: Insulin LISPRO 300 UNITS/3 ML VIAL SQ SCH (06:00)
[2019-05-10 06:50] LABS: VBG Ionized Calcium 1.17 mmol/L (1.15-1.35)
[2019-05-10 07:09] LABS: Creatine Kinase 143 Units/L (30-223); Magnesium 1.5 mg/dL (1.6-2.6)
[2019-05-10 07:10] LABS: Troponin I < 0.03 ng/mL (< 0.04)
[2019-05-10] MEDS ORDERED: 0.9 % Sodium Chloride 500 ML ONE (07:34)
[2019-05-10] MEDS: Budesonide/Formoterol 160/4.5 1 PUFF INH IH SCH ×2 (07:59→20:14)
[2019-05-10] MEDS: Chlorhexidine Rinse 15 ML MOUTHWASH MM SCH ×2 (08:28→19:56)
[2019-05-10] MEDS: Ringers Solution, Lactated 1,000 ML IVC SCH ×2 (08:29→17:22)
[2019-05-10] MEDS ORDERED: *HR* Midazolam HCl 5 MG/5 ML VIAL IVP ONE (09:34)
[2019-05-10] MEDS: Insulin LISPRO 300 UNITS/3 ML VIAL SQ SCH ×2 (11:56→17:22)
[2019-05-10] MEDS: Norepinephrine 4 MG in 0.9 % Sodium Chloride 250 ML IVC SCH (12:00)
[2019-05-10] MEDS ORDERED: Morphine Sulfate 2 MG/ML SYRINGE IVP PRN (13:46)
[2019-05-10 15:45] LABS: Calcium 8.3 mg/dL (8.6-10.3); Potassium 3.9 mEq/L (3.5-5.1)
[2019-05-11] MEDS: Insulin LISPRO 300 UNITS/3 ML VIAL SQ SCH ×5 (00:18→23:34)
[2019-05-11] MEDS: Ringers Solution, Lactated 1,000 ML IVC SCH ×3 (03:05→23:35)
[2019-05-11 03:45] LABS: Basophils % 0.1 %; Mean Corpuscular Hemoglobin 32.8 pg (28.0-33.3); Red Blood Count 3.54 M/mcL (4.19-5.50); Red Cell Distribution Width 14.2 % (11.5-14.5)
[2019-05-11] MEDS: Ipratropium/Albuterol Neb 3 ML IH SCH ×7 (03:46→23:25)
[2019-05-11 03:47] LABS: Hematocrit 33.9 % (37.5-50.1); Hemoglobin 11.6 g/dL (12.9-16.9); Immature Granulocytes % 0.4 % (0-4); Immature Platelets 5.6 % (1.1-6.1); Lymphocytes # 0.7 K/mcL (0.6-4.6); Lymphocytes % 5.6 %; Mean Corpuscular HGB Conc 34.2 g/dL (31.6-35.5); Mean Corpuscular Volume 95.8 fL (83.0-100.0); Mean Platelet Volume 11.1 fL (9.4-12.4); Monocytes % 8.5 %; Segmented Neutrophils % 85.4 %; White Blood Count 11.7 K/mcL (4.3-11.1)
[2019-05-11 03:51] LABS: Platelet Count 78 K/mcL (140-400)
[2019-05-11 03:52] LABS: Platelet Estimate Decreased (Normal)
[2019-05-11 04:06] LABS: Albumin 3.1 g/dL (3.5-5.7); Albumin/Globulin Ratio 1.8 (1.1-2.2); Bilirubin,Total 0.7 mg/dL (0.3-1.0); Calcium 8.7 mg/dL (8.6-10.3); Globulin 1.7 g/dL (2.4-3.5); Potassium 4.2 mEq/L (3.5-5.1); Total Protein 4.8 g/dL (6.4-8.9)
[2019-05-11] MEDS: Budesonide/Formoterol 160/4.5 1 PUFF INH IH SCH ×2 (08:08→21:41)
[2019-05-11] MEDS ORDERED: Famotidine 20 MG/2 ML VIAL IVP SCH (09:00)
[2019-05-11] MEDS ORDERED: Albuterol 2.5 MG/3 ML NEBULIZER IH PRN (12:31)
[2019-05-11] MEDS ORDERED: *HR* Dextrose 50 % in Water (Syg) 50 ML SYRINGE IVP PRN (12:31)
[2019-05-11] MEDS ORDERED: Morphine Sulfate 2 MG/ML SYRINGE IVP PRN (12:31)
[2019-05-11] MEDS ORDERED: Dextrose Gel 15 GM/37.5 ML TUBE PO PRN ×2 (12:31)
[2019-05-11] MEDS ORDERED: Naloxone 0.4 MG/ML INJ IVP PRN (12:31)
[2019-05-11 15:14] LABS: Potassium 3.8 mEq/L (3.5-5.1)
[2019-05-11] MEDS ORDERED: Furosemide 40 MG/4 ML VIAL IVP ONE (23:18)
[2019-05-11] MEDS ORDERED: Haloperidol Lactate 5 MG/ML VIAL IVP ONE (23:19)
[2019-05-12] MEDS: *HR* Labetalol 20 MG/4 ML SYRINGE IVP PRN (01:11)
[2019-05-12] MEDS: Ipratropium/Albuterol Neb 3 ML IH SCH ×6 (04:44→23:57)
[2019-05-12 05:11] LABS: Basophils % 0.1 %; Hemoglobin 12.2 g/dL (12.9-16.9); Nucleated Red Blood Cells 0.3 /100 WBC (0); Red Cell Distribution Width 14.4 % (11.5-14.5)
[2019-05-12 05:13] LABS: Hematocrit 34.9 % (37.5-50.1); Immature Granulocytes % 0.3 % (0-4); Lymphocytes # 0.4 K/mcL (0.6-4.6); Lymphocytes % 4.5 %; Mean Corpuscular Hemoglobin 32.6 pg (28.0-33.3); Mean Corpuscular Volume 93.3 fL (83.0-100.0); Mean Platelet Volume 10.8 fL (9.4-12.4); Monocytes # 0.4 K/mcL (0.0-1.3); Monocytes % 5.4 %; Red Blood Count 3.74 M/mcL (4.19-5.50); Segmented Neutrophils % 89.7 %; White Blood Count 7.8 K/mcL (4.3-11.1)
[2019-05-12 05:29] LABS: BUN/Creatinine Ratio 23 (6-26); Blood Urea Nitrogen 30 mg/dL (8-23); Carbon Dioxide 23 mEq/L (23-29); Chloride 110 mEq/L (98-107); Glucose 86 mg/dL (70-105); Osmolality,Calculated 303 (280-300); Potassium 3.5 mEq/L (3.5-5.1); Sodium 144 mEq/L (136-145); eGFR For African Americans > 60 (> 60); eGFR For Non-African Americans 52 (> 60)
[2019-05-12 05:33] LABS: Platelet Count 86 K/mcL (140-400)
[2019-05-12 05:48] LABS: Platelet Estimate Decreased (Normal)
[2019-05-12] MEDS: Insulin LISPRO 300 UNITS/3 ML VIAL SQ SCH ×3 (05:49→18:02)
[2019-05-12] MEDS: Budesonide/Formoterol 160/4.5 1 PUFF INH IH SCH ×2 (08:16→20:24)
[2019-05-12] MEDS: Famotidine 20 MG/2 ML VIAL IVP SCH (09:11)
[2019-05-13] MEDS: Insulin LISPRO 300 UNITS/3 ML VIAL SQ SCH ×2 (00:26→06:13)
[2019-05-13] MEDS: *HR* Labetalol 20 MG/4 ML SYRINGE IVP PRN (01:41)
[2019-05-13] MEDS: Ipratropium/Albuterol Neb 3 ML IH SCH ×6 (04:13→23:47)
[2019-05-13 04:43] LABS: Basophils # 0.1 K/mcL (0.0-0.2); Basophils % 0.6 %; Hematocrit 36.7 % (37.5-50.1); Hemoglobin 12.2 g/dL (12.9-16.9); Immature Granulocytes % 0.5 % (0-4); Lymphocytes # 0.3 K/mcL (0.6-4.6); Lymphocytes % 2.7 %; Mean Corpuscular HGB Conc 33.2 g/dL (31.6-35.5); Mean Corpuscular Hemoglobin 32.2 pg (28.0-33.3); Mean Corpuscular Volume 96.8 fL (83.0-100.0); Mean Platelet Volume 11.2 fL (9.4-12.4); Monocytes # 0.6 K/mcL (0.0-1.3); Nucleated Red Blood Cells 0.2 /100 WBC (0); Platelet Count 120 K/mcL (140-400); Red Blood Count 3.79 M/mcL (4.19-5.50); Red Cell Distribution Width 14.5 % (11.5-14.5); Segmented Neutrophils % 91.2 %
[2019-05-13 04:58] LABS: BUN/Creatinine Ratio 29 (6-26); Blood Urea Nitrogen 35 mg/dL (8-23); Calcium 9.4 mg/dL (8.6-10.3); Carbon Dioxide 25 mEq/L (23-29); Chloride 110 mEq/L (98-107); Glucose 111 mg/dL (70-105); Osmolality,Calculated 309 (280-300); Potassium 3.5 mEq/L (3.5-5.1); Sodium 145 mEq/L (136-145); eGFR For African Americans > 60 (> 60); eGFR For Non-African Americans 57 (> 60)
[2019-05-13 05:17] LABS: Platelet Estimate Normal (Normal)
[2019-05-13] MEDS: Budesonide/Formoterol 160/4.5 1 PUFF INH IH SCH ×2 (08:05→21:06)
[2019-05-13] MEDS ORDERED: amLODIPine 5 MG TABLET PO SCH (09:00)
[2019-05-13] MEDS: carvediloL 6.25 MG TABLET PO SCH ×2 (09:55→17:45)
[2019-05-13] MEDS: Famotidine 20 MG/2 ML VIAL IVP SCH (09:55)
[2019-05-13] MEDS: Piperacillin/Tazobactam 3.375 GM in 0.9 % Sodium Chloride Mini Bag 100 ML IVPB SCH (15:52)
[2019-05-13] MEDS ORDERED: Insulin LISPRO 300 UNITS/3 ML VIAL SQ SCH (16:30)
[2019-05-13] MEDS ORDERED: Furosemide 20 MG/2 ML VIAL IVP ONE (18:14)
[2019-05-14] MEDS: Piperacillin/Tazobactam 3.375 GM in 0.9 % Sodium Chloride Mini Bag 100 ML IVPB SCH ×3 (01:17→16:56)
[2019-05-14] MEDS: Ipratropium/Albuterol Neb 3 ML IH SCH ×6 (03:46→23:49)
[2019-05-14 05:56] LABS: Basophils % 0.3 %; Eosinophils % 0.1 %; Hematocrit 34.6 % (37.5-50.1); Hemoglobin 11.4 g/dL (12.9-16.9); Immature Granulocytes % 0.7 % (0-4); Lymphocytes # 0.3 K/mcL (0.6-4.6); Lymphocytes % 2.6 %; Mean Corpuscular HGB Conc 32.9 g/dL (31.6-35.5); Mean Corpuscular Hemoglobin 32.2 pg (28.0-33.3); Mean Corpuscular Volume 97.7 fL (83.0-100.0); Mean Platelet Volume 11.3 fL (9.4-12.4); Monocytes # 0.7 K/mcL (0.0-1.3); Monocytes % 6.1 %; Nucleated Red Blood Cells 0.2 /100 WBC (0); Platelet Count 131 K/mcL (140-400); Red Blood Count 3.54 M/mcL (4.19-5.50); Red Cell Distribution Width 14.4 % (11.5-14.5); Segmented Neutrophils % 90.2 %
[2019-05-14 06:01] LABS: Neutrophils # 10.8 K/mcL (1.6-8.9)
[2019-05-14 06:17] LABS: BUN/Creatinine Ratio 31 (6-26); Blood Urea Nitrogen 41 mg/dL (8-23); Calcium 9.5 mg/dL (8.6-10.3); Carbon Dioxide 27 mEq/L (23-29); Chloride 110 mEq/L (98-107); Glucose 128 mg/dL (70-105); Osmolality,Calculated 316 (280-300); Platelet Estimate Slight Decrease (Normal); Potassium 3.4 mEq/L (3.5-5.1); Sodium 147 mEq/L (136-145); eGFR For African Americans > 60 (> 60); eGFR For Non-African Americans 52 (> 60)
[2019-05-14] MEDS: Budesonide/Formoterol 160/4.5 1 PUFF INH IH SCH ×2 (07:30→20:06)
[2019-05-14] MEDS: Famotidine 20 MG/2 ML VIAL IVP SCH (08:38)
[2019-05-14] MEDS: carvediloL 6.25 MG TABLET PO SCH ×2 (08:38→16:58)
[2019-05-15] MEDS: Piperacillin/Tazobactam 3.375 GM in 0.9 % Sodium Chloride Mini Bag 100 ML IVPB SCH ×3 (00:17→16:08)
[2019-05-15] MEDS: Ipratropium/Albuterol Neb 3 ML IH SCH ×5 (04:14→20:13)
[2019-05-15 06:50] LABS: Basophils % 0.2 %; Eosinophils # 0.1 K/mcL (0.0-0.6); Eosinophils % 0.5 %; Hematocrit 31.9 % (37.5-50.1); Hemoglobin 10.8 g/dL (12.9-16.9); Lymphocytes # 0.7 K/mcL (0.6-4.6); Lymphocytes % 4.4 %; Mean Corpuscular HGB Conc 33.9 g/dL (31.6-35.5); Mean Corpuscular Hemoglobin 32.8 pg (28.0-33.3); Mean Platelet Volume 11.6 fL (9.4-12.4); Monocytes % 6.7 %; Neutrophils # 13.1 K/mcL (1.6-8.9); Nucleated Red Blood Cells 0.2 /100 WBC (0); Platelet Count 147 K/mcL (140-400); Red Blood Count 3.29 M/mcL (4.19-5.50); Red Cell Distribution Width 14.5 % (11.5-14.5); Segmented Neutrophils % 87.2 %
[2019-05-15 07:12] LABS: BUN/Creatinine Ratio 33 (6-26); Blood Urea Nitrogen 41 mg/dL (8-23); Calcium 9.3 mg/dL (8.6-10.3); Carbon Dioxide 26 mEq/L (23-29); Chloride 114 mEq/L (98-107); Glucose 120 mg/dL (70-105); Magnesium 2.2 mg/dL (1.6-2.6); Osmolality,Calculated 329 (280-300); Potassium 3.4 mEq/L (3.5-5.1); Sodium 154 mEq/L (136-145); eGFR For African Americans > 60 (> 60); eGFR For Non-African Americans 56 (> 60)
[2019-05-15] MEDS ORDERED: D5% in Water 1,000 ML IVC SCH (07:30)
[2019-05-15] MEDS: Budesonide/Formoterol 160/4.5 1 PUFF INH IH SCH ×2 (08:00→20:13)
[2019-05-15] MEDS: Famotidine 20 MG/2 ML VIAL IVP SCH (08:52)
[2019-05-15] MEDS: carvediloL 6.25 MG TABLET PO SCH ×2 (08:53→16:09)
[2019-05-15] MEDS: MethylPREDNISolone 40 MG/ML VIAL IVP SCH (14:22)
[2019-05-15 15:23] LABS: BUN/Creatinine Ratio 28 (6-26); Blood Urea Nitrogen 37 mg/dL (8-23); Calcium 8.8 mg/dL (8.6-10.3); Carbon Dioxide 25 mEq/L (23-29); Chloride 113 mEq/L (98-107); Glucose 152 mg/dL (70-105); Osmolality,Calculated 316 (280-300); Potassium 3.2 mEq/L (3.5-5.1); Sodium 147 mEq/L (136-145); eGFR For African Americans > 60 (> 60); eGFR For Non-African Americans 53 (> 60)
[2019-05-15] MEDS ORDERED: Potassium Chloride Elixir 20 MEQ/15 ML UDC PO ONE (15:27)
[2019-05-15] MEDS: Potassium Chloride 20 MEQ in D5% in Water 1,000 ML IVC SCH (16:09)
[2019-05-16] MEDS: Ipratropium/Albuterol Neb 3 ML IH SCH ×7 (04:28→23:23)
[2019-05-16 05:25] LABS: Basophils % 0.2 %; Hematocrit 30.2 % (37.5-50.1); Hemoglobin 10.2 g/dL (12.9-16.9); Immature Granulocytes % 2.2 % (0-4); Lymphocytes # 0.5 K/mcL (0.6-4.6); Lymphocytes % 4.3 %; Mean Corpuscular HGB Conc 33.8 g/dL (31.6-35.5); Mean Corpuscular Hemoglobin 32.7 pg (28.0-33.3); Mean Corpuscular Volume 96.8 fL (83.0-100.0); Mean Platelet Volume 11.8 fL (9.4-12.4); Monocytes # 0.5 K/mcL (0.0-1.3); Neutrophils # 10.6 K/mcL (1.6-8.9); Nucleated Red Blood Cells 0.2 /100 WBC (0); Platelet Count 157 K/mcL (140-400); Red Blood Count 3.12 M/mcL (4.19-5.50); Red Cell Distribution Width 14.6 % (11.5-14.5); Segmented Neutrophils % 89.3 %; White Blood Count 11.9 K/mcL (4.3-11.1)
[2019-05-16 05:40] LABS: BUN/Creatinine Ratio 25 (6-26); Blood Urea Nitrogen 32 mg/dL (8-23); Calcium 8.4 mg/dL (8.6-10.3); Carbon Dioxide 26 mEq/L (23-29); Chloride 110 mEq/L (98-107); Glucose 158 mg/dL (70-105); Magnesium 2.1 mg/dL (1.6-2.6); Osmolality,Calculated 312 (280-300); Potassium 3.8 mEq/L (3.5-5.1); Sodium 146 mEq/L (136-145); eGFR For African Americans > 60 (> 60); eGFR For Non-African Americans 55 (> 60)
[2019-05-16] MEDS: Potassium Chloride 20 MEQ in D5% in Water 1,000 ML IVC SCH ×2 (06:51→07:40)
[2019-05-16] MEDS: Budesonide/Formoterol 160/4.5 1 PUFF INH IH SCH ×2 (07:59→19:52)
[2019-05-16] MEDS: carvediloL 6.25 MG TABLET PO SCH ×2 (08:30→17:02)
[2019-05-16] MEDS: Famotidine 20 MG/2 ML VIAL IVP SCH (08:32)
[2019-05-16] MEDS: Piperacillin/Tazobactam 3.375 GM in 0.9 % Sodium Chloride Mini Bag 100 ML IVPB SCH ×4 (08:32→23:50)
[2019-05-16] MEDS: MethylPREDNISolone 40 MG/ML VIAL IVP SCH ×4 (08:32→23:50)
[2019-05-16] MEDS: Azithromycin 250 MG TABLET PO SCH (13:33)
[2019-05-16 14:39] LABS: Adenovirus Not Detected (Not Detect); Bordetella Pertussis Not Detected (Not Detect); Chlamydophila pneumoniae Not Detected (Not Detect); Coronavirus 229E Not Detected (Not Detect); Coronavirus HKU1 Not Detected (Not Detect); Coronavirus NL63 Not Detected (Not Detect); Coronavirus OC43 Not Detected (Not Detect); Human Metapneumovirus Not Detected (Not Detect); Human Rhinovirus/Enterovirus Not Detected (Not Detect); Influenza A Subtype 2009 H1 Not Detected (Not Detect); Influenza A Untypeable Not Detected (Not Detect); Influenza B Not Detected (Not Detect); Mycoplasma pneumoniae Not Detected (Not Detect); Parainfluenza Virus 1 Not Detected (Not Detect); Parainfluenza Virus 2 Not Detected (Not Detect); Parainfluenza Virus 3 Not Detected (Not Detect); Parainfluenza Virus 4 Not Detected (Not Detect); Respiratory Syncytial Virus Not Detected (Not Detect)
[2019-05-16] MEDS: *HR* Heparin 5,000 UNIT/ML VIAL SQ SCH (17:01)
[2019-05-17] MEDS: Potassium Chloride 20 MEQ in D5% in Water 1,000 ML IVC SCH (03:21)
[2019-05-17] MEDS: Ipratropium/Albuterol Neb 3 ML IH SCH ×6 (03:29→23:23)
[2019-05-17] MEDS: *HR* Heparin 5,000 UNIT/ML VIAL SQ SCH ×2 (06:23→17:33)
[2019-05-17 06:58] LABS: Basophils % 0.2 %; Hematocrit 29.4 % (37.5-50.1); Immature Granulocytes % 2.6 % (0-4); Lymphocytes # 0.7 K/mcL (0.6-4.6); Lymphocytes % 5.5 %; Mean Corpuscular Hemoglobin 32.4 pg (28.0-33.3); Mean Corpuscular Volume 95.1 fL (83.0-100.0); Mean Platelet Volume 11.2 fL (9.4-12.4); Monocytes # 0.5 K/mcL (0.0-1.3); Monocytes % 3.9 %; Neutrophils # 11.3 K/mcL (1.6-8.9); Nucleated Red Blood Cells 0.2 /100 WBC (0); Platelet Count 205 K/mcL (140-400); Red Blood Count 3.09 M/mcL (4.19-5.50); Red Cell Distribution Width 14.5 % (11.5-14.5); Segmented Neutrophils % 87.8 %; White Blood Count 12.9 K/mcL (4.3-11.1)
[2019-05-17 07:18] LABS: BUN/Creatinine Ratio 26 (6-26); Blood Urea Nitrogen 31 mg/dL (8-23); Calcium 8.5 mg/dL (8.6-10.3); Carbon Dioxide 25 mEq/L (23-29); Chloride 109 mEq/L (98-107); Glucose 150 mg/dL (70-105); Magnesium 2.2 mg/dL (1.6-2.6); Osmolality,Calculated 305 (280-300); Potassium 3.8 mEq/L (3.5-5.1); Sodium 143 mEq/L (136-145); eGFR For African Americans > 60 (> 60); eGFR For Non-African Americans 58 (> 60)
[2019-05-17] MEDS: Budesonide/Formoterol 160/4.5 1 PUFF INH IH SCH ×2 (07:32→19:48)
[2019-05-17] MEDS: Piperacillin/Tazobactam 3.375 GM in 0.9 % Sodium Chloride Mini Bag 100 ML IVPB SCH ×2 (08:57→17:22)
[2019-05-17] MEDS: Azithromycin 250 MG TABLET PO SCH (09:00)
[2019-05-17] MEDS: carvediloL 6.25 MG TABLET PO SCH ×2 (09:00→17:24)
[2019-05-17] MEDS: MethylPREDNISolone 40 MG/ML VIAL IVP SCH ×2 (09:01→17:25)
[2019-05-17] MEDS: Famotidine 20 MG/2 ML VIAL IVP SCH (09:02)
[2019-05-18] MEDS: Piperacillin/Tazobactam 3.375 GM in 0.9 % Sodium Chloride Mini Bag 100 ML IVPB SCH ×3 (00:41→15:58)
[2019-05-18] MEDS: MethylPREDNISolone 40 MG/ML VIAL IVP SCH ×3 (00:41→15:57)
[2019-05-18] MEDS: Ipratropium/Albuterol Neb 3 ML IH SCH ×6 (04:24→23:47)
[2019-05-18 05:14] LABS: Basophils % 0.3 %; Hematocrit 30.6 % (37.5-50.1); Hemoglobin 10.2 g/dL (12.9-16.9); Immature Granulocytes % 3.7 % (0-4); Lymphocytes # 0.5 K/mcL (0.6-4.6); Lymphocytes % 4.7 %; Mean Corpuscular HGB Conc 33.3 g/dL (31.6-35.5); Mean Corpuscular Volume 95.9 fL (83.0-100.0); Mean Platelet Volume 11.2 fL (9.4-12.4); Monocytes # 0.6 K/mcL (0.0-1.3); Monocytes % 4.9 %; Neutrophils # 9.9 K/mcL (1.6-8.9); Nucleated Red Blood Cells 0.3 /100 WBC (0); Platelet Count 237 K/mcL (140-400); Red Blood Count 3.19 M/mcL (4.19-5.50); Red Cell Distribution Width 14.6 % (11.5-14.5); Segmented Neutrophils % 86.4 %; White Blood Count 11.5 K/mcL (4.3-11.1)
[2019-05-18 05:30] LABS: BUN/Creatinine Ratio 24 (6-26); Blood Urea Nitrogen 29 mg/dL (8-23); Calcium 8.1 mg/dL (8.6-10.3); Carbon Dioxide 23 mEq/L (23-29); Chloride 114 mEq/L (98-107); Glucose 127 mg/dL (70-105); Osmolality,Calculated 311 (280-300); Potassium 4.1 mEq/L (3.5-5.1); Sodium 147 mEq/L (136-145); eGFR For African Americans > 60 (> 60); eGFR For Non-African Americans 56 (> 60)
[2019-05-18] MEDS: *HR* Heparin 5,000 UNIT/ML VIAL SQ SCH ×2 (06:03→16:57)
[2019-05-18] MEDS: Budesonide/Formoterol 160/4.5 1 PUFF INH IH SCH ×2 (07:21→19:25)
[2019-05-18] MEDS: Famotidine 20 MG/2 ML VIAL IVP SCH (07:52)
[2019-05-18] MEDS: Azithromycin 250 MG TABLET PO SCH (07:52)
[2019-05-18] MEDS: carvediloL 6.25 MG TABLET PO SCH ×2 (07:52→16:03)
[2019-05-18] MEDS: D5% in Water 1,000 ML IVC SCH (08:01)
[2019-05-19] MEDS: Piperacillin/Tazobactam 3.375 GM in 0.9 % Sodium Chloride Mini Bag 100 ML IVPB SCH ×3 (00:25→15:30)
[2019-05-19] MEDS: MethylPREDNISolone 40 MG/ML VIAL IVP SCH ×2 (00:25→07:45)
[2019-05-19] MEDS: Ipratropium/Albuterol Neb 3 ML IH SCH ×5 (03:21→20:37)
[2019-05-19] MEDS: *HR* Heparin 5,000 UNIT/ML VIAL SQ SCH ×2 (05:20→17:03)
[2019-05-19] MEDS: Budesonide/Formoterol 160/4.5 1 PUFF INH IH SCH ×2 (07:40→20:37)
[2019-05-19] MEDS: Famotidine 20 MG/2 ML VIAL IVP SCH (07:45)
[2019-05-19] MEDS: carvediloL 6.25 MG TABLET PO SCH ×2 (07:45→17:02)
[2019-05-19] MEDS: Azithromycin 250 MG TABLET PO SCH (07:45)
[2019-05-19] MEDS: D5% in Water 1,000 ML IVC SCH (09:06)
[2019-05-19 10:23] LABS: BUN/Creatinine Ratio 25 (6-26); Blood Urea Nitrogen 27 mg/dL (8-23); Calcium 8.7 mg/dL (8.6-10.3); Carbon Dioxide 23 mEq/L (23-29); Chloride 109 mEq/L (98-107); Glucose 170 mg/dL (70-105); Osmolality,Calculated 305 (280-300); Potassium 4.2 mEq/L (3.5-5.1); Sodium 143 mEq/L (136-145); eGFR For African Americans > 60 (> 60); eGFR For Non-African Americans > 60 (> 60)
[2019-05-20] MEDS: Ipratropium/Albuterol Neb 3 ML IH SCH ×4 (00:04→11:11)
[2019-05-20] MEDS: Piperacillin/Tazobactam 3.375 GM in 0.9 % Sodium Chloride Mini Bag 100 ML IVPB SCH ×2 (00:23→07:40)
[2019-05-20] MEDS: *HR* Heparin 5,000 UNIT/ML VIAL SQ SCH (04:58)
[2019-05-20] MEDS: Budesonide/Formoterol 160/4.5 1 PUFF INH IH SCH (07:32)
[2019-05-20] MEDS: carvediloL 6.25 MG TABLET PO SCH (07:42)
[2019-05-20] MEDS: Famotidine 20 MG/2 ML VIAL IVP SCH (07:42)
[2019-05-20] MEDS ORDERED: levoFLOXacin 750 MG TABLET PO SCH (09:00)
[2019-05-20 10:17] LABS: BUN/Creatinine Ratio 23 (6-26); Blood Urea Nitrogen 24 mg/dL (8-23); Calcium 8.6 mg/dL (8.6-10.3); Carbon Dioxide 21 mEq/L (23-29); Chloride 112 mEq/L (98-107); Glucose 100 mg/dL (70-105); Osmolality,Calculated 300 (280-300); Potassium 4.1 mEq/L (3.5-5.1); Sodium 143 mEq/L (136-145); eGFR For African Americans > 60 (> 60); eGFR For Non-African Americans > 60 (> 60)
[2019-05-20 12:11] VITALS: BP 132/81
== END 2019-05-20 13:40 | DRG 268 ==
LOC: SAMDAY 06:28 → ICNU 14:41 → 2NNU 05-12 11:03
PROVIDERS: ADMIT Surgery Vascular Surgery; ATTEND Surgery Vascular Surgery